=== PATIENT | female | born 1960 | race Caucasian/White ===

== ENCOUNTER → 2017-12-30 | Outpatient (CLI) | payer OTHER ==
--- NOTE | 2017-12-30 11:08 | CT ---
EXAMINATION TYPE: CT soft tissue neck wo con DATE OF EXAM: 12/30/2017 HISTORY: Streptococcal pharyngitis 3-4 months, neck pain with cervical adenopathy per order. On and o ff strep throat for 6 months per patient. COMPARISON: NONE CT DLP: 336.00 mGycm. Automated Exposure Control for Dose Reduction was Utilized. TECHNIQUE: CT scan of the neck is performed without IV contrast axial images are obtained, coronal a nd sagittal reformatted images are reviewed. FINDINGS: Evaluation is noted suboptimal secondary to lack of IV contrast which limits evaluation for adenopathy and subtle mucosal lesions. Airway: Nasopharyngeal and oropharyngeal airways are grossly patent. There is fullness in the vallecu la could reflect retained secretions, underlying lesion at this level cannot be excluded sagittal becky ge 42. Former is favored as there is no obvious eccentric mass present on axial images. Region of the piriform sinuses is within normal limits. Hypopharyngeal airway extending into proximal trachea is u nremarkable. There is 4 mm calcification anterior left thyroid. There is mild emphysematous change in lung apices. Parotid/submandibular glands: No gross abnormality seen. Carotid/Vascular Structures: There is minimal calcified plaque right carotid bulb. Osseous Structures: There is straightening of cervical spine. There is moderate disc space narrowing and spurring C5-C6 and C6-C7 levels. Multilevel uncovertebral facet arthropathy is seen on axial imag es. Other: Parapharyngeal fat spaces are symmetric and maintained. There is no definitive suspicious grea ter than 1 cm adenopathy. Patchy opacification left mastoid air cells with sclerosis may reflect product of chronic mastoiditis , correlate clinically. IMPRESSION: Suboptimal study, no definitive mass or adenopathy. Fullness of vallecula favors retained secretions, consider ENT consult and direct visualization.
== END ==
LOC: RADCTMAIN 09:02
PROVIDERS: ATTEND Family Medicine
DX: J02.0 Streptococcal pharyngitis (principal)
CPT/HCPCS: 70490

== ENCOUNTER → 2018-01-19 | Outpatient (CLI) | payer OTHER ==
--- NOTE | 2018-01-19 13:49 | US ---
EXAMINATION TYPE: US thyroid st tissue head/neck DATE OF EXAM: 01/19/2018 COMPARISON: CT neck December 30, 2017 CLINICAL HISTORY: E04.1 Thyroid Nodule. fullness, sore throat, allergies GLAND SIZE: Right Lobe: 4.6 x 1.7 x 1.4 cm Overall Parenchyma: homogenous Left Lobe: 4.9 x 1.6 x 1.6 cm Overall Parenchyma: homogeneous Isthmus Thickness: 0.2 cm NODULES RIGHT: # of nodules measured on right: 0 LEFT: # of nodules measured on left: 1 1. 0.6 X 0.3 x 0.5 cm hypoechoic calcified nodule at the lower, anterior pole. This nodule is wide r than tall and shows no intranodular vascularity. Prior size: no previous ultrasound ISTHMUS: # of nodules measured in the isthmus: 0 Bilateral neck scanned, no evidence of lymphadenopathy. Homogeneous normal-sized thyroid with 6 mm partially calcified nodule lower pole level left thyroid r edemonstrated. IMPRESSION: As above, no suspicious greater than 1 cm nodules identified.
== END | disposition home or self-care (01) ==
LOC: RADUSWWP 12:13
PROVIDERS: ATTEND Otolaryngology
DX: E04.1 Nontoxic single thyroid nodule (principal)
CPT/HCPCS: 76536

== ENCOUNTER → 2018-07-17 | Outpatient (CLI) | payer OTHER ==
--- NOTE | 2018-07-17 12:44 | US ---
EXAMINATION TYPE: US thyroid st tissue head/neck DATE OF EXAM: 07/17/2018 COMPARISON: US 01/19/2018 CLINICAL HISTORY: E04.1 Nontoxic single thyroid nodule. GLAND SIZE: Right Lobe: 4.5 x 1.3 x 1.5 cm Overall Parenchyma: heterogenous Left Lobe: 4.5 x 1.2 x 1.3 cm Overall Parenchyma: heterogeneous Isthmus Thickness: 0.3 cm NODULES RIGHT: # of nodules measured on right: 0 LEFT: # of nodules measured on left: 1 1. 0.5 X 0.3 x 0.4 cm hypoechoic solid nodule at the lower pole with poorly defined margins; interr upted peripheral calcification. This nodule is wider than tall and shows intranodular vascularity. Prior size: 0.6 x 0.3 x 0.5 cm ISTHMUS: # of nodules measured in the isthmus: Bilateral neck scanned, no evidence of lymphadenopathy. There is heterogeneous normal sized thyroid with small left-sided nodule redemonstrated felt stable. IMPRESSION: As above, no new greater than 1 cm solid or cystic nodules identified. Overall stable findings.
== END | disposition home or self-care (01) ==
LOC: RADUSWWP 12:10
PROVIDERS: ATTEND Otolaryngology
DX: E04.1 Nontoxic single thyroid nodule (principal)
CPT/HCPCS: 76536

== ENCOUNTER → 2020-04-28 | Outpatient (CLI) | payer BC ==
--- NOTE | 2020-04-29 12:13 | MM ---
Reason for exam: screening (asymptomatic). Last mammogram was performed 4 years and 4 months ago. History: Family history of breast cancer in 2 aunts and breast cancer in cousin. Cyst aspiration of the right breast, January 2007. Physical Findings: A clinical breast exam by your physician is recommended on an annual basis and results should be correlated with mammographic findings. MG Screening Mammo w CAD Bilateral CC and MLO view(s) were taken. Prior study comparison: December 31, 2015, bilateral MG screening mammo w CAD. August 09, 2007, CAD bilateral diagnostic mammogram. The breast tissue is heterogeneously dense. This may lower the sensitivity of mammography. Finding #1: There is a 7-8 mm indistinct round mass located 7-8 cm from the nipple in the outer quadrant, posterior position of the left breast. Finding #2: There are typically benign dystrophic, round calcifications in both breasts. There is no discrete abnormality. New finding since December 31, 2015. ASSESSMENT: Incomplete: need additional imaging evaluation, BI-RAD 0 RECOMMENDATION: Special view mammogram and ultrasound of the left breast. [facility] will attempt to contact patient to return for supplemental views and ultrasound.
== END | disposition home or self-care (01) ==
LOC: RADMAMWWP 07:52
PROVIDERS: ATTEND Family Medicine
DX: Z12.31 Encounter for screening mammogram for malignant neoplasm of breast (principal)
CPT/HCPCS: 77067

== ENCOUNTER → 2020-05-16 | Outpatient (CLI) | payer BC ==
--- NOTE | 2020-05-16 12:00 | MM ---
Reason for exam: additional evaluation requested from abnormal screening. Last mammogram was performed 1 month ago. History: Family history of breast cancer in 2 aunts and breast cancer in cousin. Cyst aspiration of the right breast, January 2007. Physical Findings: Nurse did not find any significant physical abnormalities on exam. MG Work Up Mamm w CAD LT Spot compression CC view(s) were taken of the left breast. Prior study comparison: April 28, 2020, bilateral MG screening mammo w CAD. December 31, 2015, bilateral MG screening mammo w CAD. The breast tissue is heterogeneously dense. This may lower the sensitivity of mammography. Finding: There are typically benign round calcifications in the left breast. There is no discrete abnormality including area of concern on CC view. No significant changes in finding since April 28, 2020 and December 31, 2015. These results were verbally communicated with the patient and result sheet given to the patient on 05/16/20. ASSESSMENT: Probably benign, BI-RAD 3 RECOMMENDATION: Follow-up diagnostic mammogram of the left breast in 6 months.
== END | disposition home or self-care (01) ==
LOC: RADMAMWWP 10:20
PROVIDERS: ATTEND Family Medicine
DX: R92.8 Other abnormal and inconclusive findings on diagnostic imaging of breast (principal)
CPT/HCPCS: 77065

== ENCOUNTER → 2020-12-10 | Outpatient (CLI) | payer BC ==
--- NOTE | 2020-12-10 11:02 | NM ---
EXAMINATION TYPE: NM stress cardiolite complete DATE OF EXAM: 12/10/2020 COMPARISON: NONE HISTORY: Abnormal EKG TECHNIQUE: After the intravenous administration of 9.5 mCi Tc 99m Sestamibi - Rest images obtained 5 5 minutes post injection. The patient exercised using a BRI protocol and 1 minute prior to peak e xercise was injected with 25 mCi Tc 99m Sestamibi - Stress images obtained 10 minutes post injection. Patient achieved 88% of predicted maximal heart rate. FINDINGS: Targeted heart rate was achieved during performance of the study. Review of stress and rest SPECT becky ges demonstrates some mild decreased uptake along the septum towards the base the heart on stress as compared to rest images. Gated analysis shows normal wall motion with an estimated left ventricular ejection fraction of 59 %. IMPRESSION: Stress-induced left ventricular myocardial ischemia suspected along the septum towards the base the h eart
--- NOTE | 2020-12-10 14:50 | EST ---
EXERCISE STRESS DATE OF SERVICE: 12/10/2020. INDICATION: Abnormal EKG. AGE: 60 SEX: Fe HT: 5'2" WT: 149 lbs. PROTOCOL: Cardiolite STAGE: 3 DURATION OF EXERCISE: 9:00 HEART RATE REST: 91 BLOOD PRESSURE REST: 148/89 MAXIMUM HEART RATE ACHIEVED: 140 MAXIMUM BLOOD PRESSURE: 197/75 85% MPHR: 135 100% MPHR: 159 METS: 9.6 RESULTS: Baseline EKG shows sinus rhythm, normal axis, normal intervals. Patient exercised on Everardo protocol for a total of 9 minutes achieving 10 METS, 88% of predicted maximal heart rate without chest pain or diagnostic ST-segment depression. CONCLUSIONS: 1. Good exercise tolerance. 2. Negative stress test by EKG criteria. MMODL / IJN: [id number] /
== END | disposition home or self-care (01) ==
LOC: RADNMMAIN 07:41
PROVIDERS: ATTEND Family Medicine
DX: R94.31 Abnormal electrocardiogram [ECG] [EKG] (principal)
CPT/HCPCS: 93017; 78452; A9500

== ENCOUNTER → 2023-04-22 | Outpatient (CLI) | payer BC ==
--- NOTE | 2023-04-26 13:12 | MM ---
Reason for Exam: Screening (asymptomatic). Last mammogram was performed 3 year(s) and 0 month(s) ago. Patient History: Menarche at age 10. First Full-Term at age 20. Hysterectomy at age 39. 01/2007, Cyst Aspiration on the Right side. Maternal cousin had breast cancer. Maternal aunt had breast cancer. Maternal aunt had breast cancer. Risk Values: Cintia 5 year model risk: 1.5%. NCI Lifetime model risk: 6.6%. Prior Study Comparison: 12/31/2015 Bilateral Screening Mammogram, LOCATED [facility]IN [facility]. 04/28/2020 Bilateral Screening Mammogram, LOCATED [facility]. 05/16/2020 Left Diagnostic Mammogram, LOCATED [facility]. Tissue Density: The breast tissue is extremely dense which could obscure a lesion on mammography. Findings: Analyzed By CAD. Pattern appears symmetrical and stable. Multiple benign-appearing rounded spherical calcifications are present. No significant interval change is evident. No suspicious groups of microcalcifications, spiculated or lobular masses, architectural distortion or other secondary signs of malignancy are mammographically apparent.Pattern appears symmetrical and stable. Multiple benign-appearing and spherical calcifications are present. No significant interval change is evident. No suspicious groups of microcalcifications, spiculated or lobular masses, architectural distortion or other secondary signs of malignancy are mammographically apparent. Overall Assessment: Benign, BI-RAD 2 Management: Screening Mammogram of both breasts in 1 year. A negative mammogram report should not preclude additional follow up of suspicious palpable abnormalities. Patient should continue monthly self breast exam. A clinical breast exam by your physician is recommended on an annual basis and results should be correlated with mammographic findings. Electronically signed and approved by: Zechariah Hemphill D.O. Radiologis
== END | disposition home or self-care (01) ==
LOC: RADMAMWWP 11:36
PROVIDERS: ATTEND Family Medicine
DX: Z12.31 Encounter for screening mammogram for malignant neoplasm of breast (principal); Z80.3 Family history of malignant neoplasm of breast
CPT/HCPCS: 77063; 77067